=== PATIENT | male | born 1965 | race Caucasian/White ===

== ENCOUNTER 2024-11-18 08:42 | Emergency (ER) | payer OTHER, SELFPAY ==
[2024-11-18 08:47] VITALS: BP 153/85; PULSE 87; RESP 16; TEMP 36.4; O2SAT 99
--- NOTE | 2024-11-18 09:08 | W.ED.GENAD ---
Discharge Plan Disposition Patient Disposition: Home Condition: Good Discharge Details Clinical Impression: Acute foreign body of left knee [facility] Provider: [facility] Provider: Rashaun Lan Home Meds and New Rx's Prescriptions: No Action cephalexin 500 mg capsule 500 mg PO Q6H lisinopril 20 mg tablet 20 mg PO DAILY metoprolol succinate 50 mg tablet extended release 24 hr 50 mg PO DAILY Discharge Instructions Instructions: Foreign Body in Skin Additional Instructions: At this time most of the foreign body has been removed. There are few small particulate components that cannot be physically removed at this point. Your body will naturally exude that component over time. Please continue to take the antibiotic. Allow the need to drain, and monitor closely for worsening redness swelling pain or discharge. If you notice that your symptoms persist even after your antibiotic course, you may need further more aggressive surgical debridement and exploration. If you notice any worsening of your symptoms, or any new symptoms such as vomiting, diarrhea, fever, chills, shortness of breath, chest pain, numbness, weakness, or fainting , please return immediately to the emergency department for reevaluation. Please follow up with your primary care provider as soon as possible for reassessment and reevaluation. As always, it was a pleasure participating in your medical care today. HPI General Date/Time Provider Initiated Documentation: 11/18/24 08:45. HPI Narrative: This is a 59-year-old male with a past medical history of hypertension, previous left ACL replacement, and previous spinal fusion surgery in June 2024, whose tetanus is up-to-date, who presents today for left knee swelling. Patient states that 4 days ago on Friday he was in a [place] when his knee hit up against a log and he got a splinter in the left anterior knee. He was able to pick certain bits of it out, he went to an urgent care yesterday and was started on antibiotics and has had nearly a full day at this point of Keflex 500 mg every 6 hours. At that time at the urgent care additional small components of the splinter were removed, but the entire foreign body was not removed. It was recommended that he come to the ER for further assessment. Patient notes that by today the swelling and redness is notably diminished on his left knee. He denies any significant pain with movement of the knee. He denies any systemic symptoms of fever or chills. He denies any other complaints at this time. He does admit to a small amount of discharge at the initial puncture wound site, and admits to the extrusion of purulent material that he has been doing himself from that area. Related Data Home Medications ?Medication ?Instructions ?Recorded ?Confirmed cephalexin 500 mg capsule 500 mg PO Q6H 11/18/24 11/18/24 lisinopril 20 mg tablet 20 mg PO DAILY 11/18/24 11/18/24 metoprolol succinate 50 mg 50 mg PO DAILY 11/18/24 11/18/24 tablet,extended release 24 hr Allergies Allergy/AdvReac Type Severity Reaction Status Date / Time No Known Allergies Allergy Unverified 11/18/24 09:07 General Stated Complaint: RashLesion GIGI: 3 Exam Narrative Exam Narrative: 1.Const: Well-nourished, Well-developed, appearing stated age 2.Eyes: PERRL, no conjunctival injection, and symmetrical lids. 3.ENT: Atraumatic external nose and ears. Moist MM. Neck: Symmetric, trachea midline, No thyromegaly. 4.CVS: +S1/S2, Peripheral pulses 2+ and equal in all extremities. Brisk capillary refill in all extremities. 5.RESP: Unlabored respiratory effort. Clear to auscultation bilaterally. No wheezes rales or rhonchi 6.GI: Soft, Nontender/Nondistended, No hepatosplenomegaly. No guarding or rebound. 7.MSK: Left knee demonstrates mild swelling around the knee itself, minimal erythema except for around the puncture site on the anterior knee. Puncture site is notably small with a small amount of purulent drainage noted when the knee is notably flexed. There is previous outlined with marker from where the erythema had been, but all the erythema is absent from that area now and is much more localized to the initial puncture component. No pain with flexion or extension of the knee. No pain with movement in general. Only minimal soreness at the puncture site itself. 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 Sensation grossly intact, no focal neurologic deficits. 10.Psych: (AAO) x3. Appropriate mood and affect Course Vital Signs Vital signs: Vital Signs Temperature 36.4 C L 11/18/24 08:47 Pulse 87 11/18/24 08:47 Respiratory Rate 16 11/18/24 08:47 Blood Pressure 153/85 H 11/18/24 08:47 Pulse Oximetry 99 11/18/24 08:47 Temperature 36.4 C L 11/18/24 08:47 Temperature Source Tympanic 11/18/24 08:47 Pulse 87 11/18/24 08:47 Respiratory Rate 16 11/18/24 08:47 Blood Pressure 153/85 H 11/18/24 08:47 Blood Pressure Position Sitting 11/18/24 08:47 Pulse Oximetry 99 11/18/24 08:47 Oxygen Delivery Method Room Air 11/18/24 08:47 Oxygen Flow Rate 0 11/18/24 08:47 Pain Level 3 11/18/24 08:47 Procedure Abscess Drainage Provider that performed the procedure: Rashaun Lan Foreign Body Removal Date of Procedure: 11/18/24. Time of procedure: 10:44 Provider that performed the procedure: Rashaun Lan Standard Time Out Performed: Yes Patient Consented: Verbally Ultrasound: Used/Image Saved Location of procedure: Lower extremity/left side (Left knee) Indication: Swelling and History of foreign body. Confirmed by: ultrasound. Sterility: Non Sterile. Local anesthetic: Lidocaine 1% and with epi. Amount of local anesthetic used(mL): 3. Technique: Bedside ultrasound guidance, Incision, Irrigation, Manual removal and Removal with forceps. Irrigation: Yes Amount of irrigation: 30. Outcome: Sucessful (Repeat ultrasound shows small particulate components remaining. Majority of the mass is now removed). Medical Decision Making This is a 59-year-old male with a past medical history of hypertension, previous left ACL replacement, and previous spinal fusion surgery in June 2024, whose tetanus is up-to-date, who presents today for left knee swelling. Patient states that 4 days ago on Friday he was in a [place] when his knee hit up against a log and he got a splinter in the left anterior knee. He was able to pick certain bits of it out, he went to an urgent care yesterday and was started on antibiotics and has had nearly a full day at this point of Keflex 500 mg every 6 hours. At that time at the urgent care additional small components of the splinter were removed, but the entire foreign body was not removed. It was recommended that he come to the ER for further assessment. Patient notes that by today the swelling and redness is notably diminished on his left knee. He denies any significant pain with movement of the knee. He denies any systemic symptoms of fever or chills. He denies any other complaints at this time. He does admit to a small amount of discharge at the initial puncture wound site, and admits to the extrusion of purulent material that he has been doing himself from that area. Exam demonstrates small amount of erythema around the puncture site with small amount of purulent drainage. Bedside limited ultrasound shows evidence of foreign body about 5 mm deep. Small amount of purulent drainage was sampled and will be sent for culture. Patient has no significant pain with actual movement of the knee otherwise. No evidence to suggest a septic joint at this time. No evidence to suggest active joint space infection. Most likely cellulitis with small abscess or potential bursal infection. Keflex appears notably appropriate. We will anesthetize the need to see if we can remove the rest of the foreign body as it is quite superficial. 10:46 AM Notable amount of the foreign body was removed without complication and was found on the forceps. Foreign body was quite soft, and had to be picked apart. Wound was then washed out with chlorhexidine and saline. Patient tolerated this well. Small particulate component was noted on remainder bedside ultrasound but the large foreign body/component was now gone. Will recommend continued antibiotics, continue drainage and bending changes. Discussed red flags for which to return. I have extensively reviewed the treatment plan and discharge instructions with the patient. I have addressed all patient concerns at this time. The patient was made aware of what symptoms to monitor for that would warrant a return to the emergency department. Discussed the plan with the patient, they demonstrate verbal understanding and agreement with our assessment and plan at this time. The documentation in this chart was dictated using [employer] dictation software. Please excuse any dictation errors. At time of discharge there is no tachycardia or fever to suggest septic joint, systemic component, or large metallic foreign body. PFSH All Active Problems (Updated 11/18/24 @ 10:43 by Rashaun Lan DO) Acute foreign body of left knee (Acute) Social History Smoking/Tobacco Use Status: Never Smoking risk assessment performed?: Yes Alcohol Intake: current Alcohol Intake frequency: 0-2 drinks per day Alcohol type: beer Drug use: Never Substance use type: does not use Housing: house Do you feel safe at home: Yes Do you feel safe in your relationship?: Yes POCUS Exam (ED) Limited Soft Tissue Exam DATE OF EXAM: 11/18/24 TIME OF EXAM: 09:13 PROVIDER THAT PERFORMED THE STUDY: Rashaun Lan IS THIS A REPEAT EXAM DURING THIS ENCOUNTER: No LOCATION OF EXAM: Lower extremity/left (Left anterior knee) REASON FOR EXAM: Abscess and History of foreign body VISUALIZED STRUCTURES: Skin and Subcutaneous tissue PERTINENT FINDINGS/IMPRESSION: Abscess Location/details of abscess: Left knee , Cellulitis Left knee , Fluid collection Left knee and Foreign body of soft tissue Left knee . Exam Complete
[2024-11-18] MEDS: Lidocaine/Epinephri/Tetracaine Topical Gel 3 ML TP (09:32)
[2024-11-18] MEDS: Chlorhexidine 4% 120 ML BTL (10:31)
--- NOTE | 2024-11-21 08:11 | NUR.NOTE ---
Access chart to get the discharge antibiotic for wound aerobic culture and gram stain. Patient to continue cephalexin 500mg Q6h. Nursing Note:
--- NOTE | 2024-11-21 08:58 | W.ED.FU ---
Follow Up Plan: contacted patient at 0900 after reviewing would culture which displays gram negative destiny. states wound almost completely healed and feels significantly improved. no change indicated in antibiotics at this time.
== END 2024-11-18 11:15 | disposition home or self-care (01) ==
PROVIDERS: Emergency Provider Student in an Organized Health Care Education/Training Program
DX: S81.042A Puncture wound with foreign body, left knee, initial encounter (principal); W45.8XXA Other foreign body or object entering through skin, initial encounter
CPT/HCPCS: 10120; 76882; 76942; 99284; 87070; 87205; 99283